=== PATIENT | female | born 1995 | race Caucasian/White ===

== ENCOUNTER 2021-03-30 11:19 | Emergency (ER) | payer OTHER, SELFPAY ==
--- NOTE | 2021-03-30 11:24 | ED.WOUNDLAC ---
HPI - Wound/Laceration General Chief Complaint: Wound/Laceration Stated Complaint: dog bite Time Seen by Provider: 03/30/21 11:27 Source: patient and RN notes reviewed Mode of arrival: ambulatory Limitations: no limitations History of Present Illness HPI narrative: 25 year old female presents with concern for dog bite to her left forearm that she sustained at 3 AM. She reports a wound to the left forearm that she sustained when her friend's dog bit her. She reports she is up-to-date on her tetanus vaccination. She denies any drainage, surrounding redness, swelling. Related Data Home Medications Medication Instructions Recorded Confirmed No Home Medications 03/30/21 03/30/21 Allergies Allergy/AdvReac Type Severity Reaction Status Date / Time latex Allergy Intermediate HIVES Verified 10/22/17 00:35 acetaminophen Allergy Mild Nausea and Verified 10/22/17 00:35 Vomiting codeine Allergy Mild Unknown Verified 10/22/17 00:35 hydrocodone Allergy Mild Nausea and Verified 10/22/17 00:35 Vomiting metronidazole Allergy Unknown Verified 10/22/17 00:35 Penicillins Allergy Unknown Verified 10/22/17 00:35 KETOROLAC TROMETHAMINE Allergy Intermediate Uncoded 10/22/17 00:35 METRONIDAZOLE HCL Allergy Unknown Uncoded 10/22/17 00:35 Review of Systems Review of Systems: Narrative: CONSTITUTIONAL: Denies malaise, chills, sweats, or fever. SKIN: Reports wound to her left forearm MUSCULOSKELETAL: Denies musculoskeletal pain or myalgia. NEUROLOGIC: Denies numbness, weakness All systems reviewed & are unremarkable except as noted in HPI and below PMFSH Family History Family History (Updated 08/19/16 @ 11:12 by DOCTOR UNKNOWN) Sibling Diabetes mellitus Family history of cystic fibrosis Social History Social History Alcohol intake: never Gender identity (if verbalized by the patient): Female Comments At time of signature, agree with nursing past medical, surgical, social and family history. There is no relevant family history pertinent to the presenting complaint Exam Narrative: Exam Narrative: GENERAL: Well-appearing, well-nourished, and in no acute distress. HEAD: Normocephalic, atraumatic. EYES: PERRLA, conjunctivae clear, and EOMI. ENT: Mucous membranes moist. Oropharynx without edema, erythema or lesions. NECK: Supple. No lymphadenopathy CHEST: Clear to auscultation. No respiratory distress. HEART: Regular rate and rhythm. SKIN: Warm, dry. 3 cm x 2 cm wound noted to the left forearm, gaping with beefy red tissue bed, no surrounding erythema, induration, edema, drainage noted. NEURO: Alert and oriented x3. PSYCH: Normal mood and affect Course Course Emergency Course: Wound is 8 hours old, gaping, unable to bring wound edges together to staple, patient is also not agreeable to stapling. Due to the nature of the wound, dog bite, will not suture at this time. Wound will be approximated as much as possible and closed with Steri-Strips and covered with a sterile dressing. Patient is starting Augmentin today for a dental problem, so will not prescribe another antibiotic today. Patient is aware of diagnosis, understands and agrees to treatment plan. Anticipatory guidance given. Patient agrees to follow-up as directed and is aware of reasons to seek care at the emergency department. Portions of this record may have been created with voice recognition software Vital Signs Vital signs: Reviewed. MDM - Wound/Laceration MDM Narrative Medical decision making narrative: Exam findings show no acute concerns or changes; patient is non-toxic appearing and is in no distress. Patient is appropriate for outpatient treatment and follow-up. Differential Diagnosis Differential diagnosis: Likely laceration, abrasion and avulsion of skin Critical Care Time Critical Care Time Critical Care Time: No Discharge Plan Discharge Clinical Impression: Dog bite Qualifiers: Encounter type: initial encounter Qualified Code(s)
[2021-03-30 11:40] VITALS: BP 110/66; PULSE 88; RESP 20; TEMP 36.4; O2SAT 100
== END 2021-03-30 11:57 | disposition home or self-care (01) ==
PROVIDERS: Emergency Provider Nurse Practitioner
DX: S51.852A Open bite of left forearm, initial encounter (principal); W54.0XXA Bitten by dog, initial encounter
CPT/HCPCS: 99213; G0463

== ENCOUNTER 2022-12-28 17:25 | Emergency (ER) | payer OTHER, SELFPAY ==
[2022-12-28 17:45] VITALS: BP 112/70; PULSE 92; RESP 20; TEMP 36.3; O2SAT 99
--- NOTE | 2022-12-28 17:52 | ED.BACK ---
HPI - Back Pain/Injury General Chief Complaint: Back Pain/Injury Stated Complaint: Lower Back Pain Time Seen by Provider: 12/28/22 17:52 Source: patient Mode of arrival: ambulatory Limitations: no limitations History of Present Illness HPI Narrative: 27-year-old female presented for complaint of right lower back pain after injury today while at work around 1230. Pain is sharp, radiating from right hip to the back of the leg down to the knee. Worse when lifting foot while walking. States at work she had to lift herself over a bin on to her toes while lifting materials out of the bin. She endorses feeling a sharp pain that resolved after a few minutes. She then returned to work and was lifting more materials while twisting, and states she felt the pain again which caused her to drop her supplies and drop to the right leg. Took non-aspirin pain reliever. Denies numbness, tingling or weakness of the extremities, saddle paresthesia, or loss of bowel/bladder control. Related Data Allergies Allergy/AdvReac Type Severity Reaction Status Date / Time acetaminophen AdvReac Intermediate Nausea and Verified 12/28/22 17:38 Vomiting codeine AdvReac Intermediate Nausea and Verified 12/28/22 17:38 Vomiting hydrocodone AdvReac Intermediate Nausea and Verified 12/28/22 17:38 Vomiting latex AdvReac Mild HIVES Verified 12/28/22 17:38 metronidazole AdvReac Mild Itching Verified 12/28/22 17:38 Penicillins AdvReac Mild Hives Verified 12/28/22 17:45 KETOROLAC TROMETHAMINE AdvReac Mild itching Uncoded 12/28/22 17:38 METRONIDAZOLE HCL AdvReac Mild Itching Uncoded 12/28/22 17:38 Review of Systems Review of Systems: CONSTITUTIONAL: Denies body aches, fever, chills EYES: Denies visual changes CARDIOVASCULAR: Denies chest pain, palpitations, or edema. RESPIRATORY: Denies cough or dyspnea. GASTROINTESTINAL: Denies abdominal pain, nausea, vomiting, or diarrhea. SKIN: Denies rash, itching, or wounds. MUSCULOSKELETAL: reports back pain NEUROLOGIC: Denies headache, numbness, tingling, or weakness. All systems reviewed & are unremarkable except as noted in HPI and below PMFSH Past Medical History Medical History (Updated 12/28/22 @ 18:13 by Radha Weir, LISA) Acute appendicitis with localized peritonitis Encounter for screening examination for sexually transmitted disease Surgical History Surgical History Delivery by section x 2 H/O tubal ligation 2020 Family History Family History Sibling Diabetes mellitus Family history of cystic fibrosis Social History Social History Smoking packs per day: 0.5 Smoking cigarettes per day: 10.0 Smoking status: Current every day smoker Tobacco type: cigarettes Alcohol intake: never Substance use: never Substance use type: does not use Living arrangements: with roommate(s) Occupation/Education: occupation 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 Please see nursing chart for further information. There is no relevant family history pertinent to the presenting complaint Exam Narrative: GENERAL: Well-appearing NECK: Supple. full ROM CHEST: Speaks in full sentences. No respiratory distress. HEART: Regular rate and rhythm. Normal and equal peripheral pulses. MUSC: No Vertebral point tenderness. BLEs with normal strength and sensation, normal range of motion; endorses pain to RLE and hip with movement. Tender right hip c/w SI joint pain. No open wounds or obvious deformity; alignment normal, pulse palpable and equal bilatera
== END 2022-12-28 18:07 | disposition home or self-care (01) ==
PROVIDERS: Emergency Provider Nurse Practitioner Family
DX: S39.012A Strain of muscle, fascia and tendon of lower back, initial encounter (principal); F17.210 Nicotine dependence, cigarettes, uncomplicated; X50.0XXA Overexertion from strenuous movement or load, initial encounter; Y99.0 Civilian activity done for income or pay
CPT/HCPCS: 99213; G0463

== ENCOUNTER 2023-02-02 16:10 | Emergency (ER) | payer OTHER, SELFPAY ==
[2023-02-02 16:18] VITALS: BP 102/69; PULSE 93; RESP 16; TEMP 36.3; O2SAT 98
--- NOTE | 2023-02-02 16:22 | ED.NAVMDI ---
HPI - Nausea/Vomiting/Diarrhea General Chief complaint: Nausea/Vomiting/Diarrhea Stated complaint: Nausea,Headache Time Seen by Provider: 02/02/23 16:22 Source: patient Mode of arrival: ambulatory Limitations: no limitations History of Present Illness HPI Narrative: Patient is 27-year-old female that presents with nausea and vomiting along with headache since Monday. Patient states any time she eats solid food she throws up, able to tolerate liquids. Patient states she can only take dye free ibuprofen to relieve headache and has not been able to get any from the store. History of gastritis as a teenager, reports feeling the same. Denies any abdominal pain, diarrhea, back pain, fever, chills. States when she smokes marijuana she is able to tolerate food and able to sleep. 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 Related Data Allergies Allergy/AdvReac Type Severity Reaction Status Date / Time acetaminophen AdvReac Intermediate Nausea and Verified 12/28/22 17:38 Vomiting codeine AdvReac Intermediate Nausea and Verified 12/28/22 17:38 Vomiting hydrocodone AdvReac Intermediate Nausea and Verified 12/28/22 17:38 Vomiting latex AdvReac Mild HIVES Verified 12/28/22 17:38 metronidazole AdvReac Mild Itching Verified 12/28/22 17:38 Penicillins AdvReac Mild Hives Verified 12/28/22 17:45 KETOROLAC TROMETHAMINE AdvReac Mild itching Uncoded 12/28/22 17:38 METRONIDAZOLE HCL AdvReac Mild Itching Uncoded 12/28/22 17:38 Review of Systems Review of Systems: All systems reviewed & are unremarkable except as noted in HPI and below Constitutional: Constitutional: Denies body ache(s), Denies fever(s), Denies malaise and Denies weakness Eyes: Eyes: Denies loss of vision ENT: Denies otalgia, Reports headache(s), Denies nasal discharge, Denies sinus pain and Denies sore throat Cardiovascular: Cardiovascular: Denies chest pain, Denies irregular heart rhythm and Denies dyspnea Respiratory: Respiratory: Denies dyspnea Gastrointestinal: Gastrointestinal: Denies abdominal pain, Denies melena, Denies hematochezia, Denies diarrhea, Reports nausea and Reports vomiting Musculoskeletal: Musculoskeletal: Denies back pain, Denies myalgias and Denies arthralgias Integumentary/Breasts: Skin/Breast: Denies pruritus and Denies rash Neurologic: Denies headache(s), Denies loss of vision and Denies weakness Psychiatric: Psychiatric: Reports no additional psychiatric complaints PMFSH Past Medical History Medical History (Updated 02/02/23 @ 16:55 by Erlinda Worrell APRN) Acute appendicitis with localized peritonitis Encounter for screening examination for sexually transmitted disease Surgical History Surgical History Delivery by section x 2 H/O tubal ligation 2020 Family History Family History Sibling Diabetes mellitus Family history of cystic fibrosis Social History Social History Smoking packs per day: 0.5 Smoking cigarettes per day: 10.0 Smoking status: Current every day smoker Tobacco type: cigarettes Alcohol intake: never Substance use: never Substance use type: does not use Living arrangements: with roommate(s) Occupation/Education: occupation 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 There is no relevant family history pertinent to the presenting complaint. Exam Const: General: cooperative, healthy appearing, comfortable, no acute distress and well nourished Nutritional Appearance: well nourished Orientation/consc
== END 2023-02-02 17:09 | disposition home or self-care (01) ==
PROVIDERS: Emergency Provider Nurse Practitioner Family
DX: R11.2 Nausea with vomiting, unspecified (principal); F17.210 Nicotine dependence, cigarettes, uncomplicated
CPT/HCPCS: 99213; G0463

== ENCOUNTER 2023-04-26 14:21 | Emergency (ER) | payer OTHER, SELFPAY ==
[2023-04-26 14:26] VITALS: BP 121/66; PULSE 83; RESP 16; TEMP 36.5; O2SAT 99
--- NOTE | 2023-04-26 14:59 | ED.ABDPAIN ---
HPI - Abdominal Pain General Chief Complaint: Abdominal Pain Stated Complaint: Abdominal Pain,Diarrhea,Dark Stools Time Seen by Provider: 04/26/23 14:36 Source: patient, RN notes reviewed and old records reviewed (PCP office records) Mode of arrival: ambulatory Limitations: no limitations History of Present Illness HPI narrative: Patient presents today complaining of a 1 month history of diarrhea that she describes as, ?dark and tarry?. States she experiences 8-9 stools per day and also states there has been some bright red material in the stool at times, but cannot confirm that this was blood. Denies rectal pain or fever. Over the past month she has been incontinent of stool 4-5 times, too with these have been over the past week. Over the past 3 days she had started experiencing periumbilical abdominal pain intermittently. Does not currently present. History of gastritis and GERD. Denies history of colitis, ulcerative colitis, Crohn's disease. She has not ever had a colonoscopy. She saw her PCP in office approximately 2 weeks ago, but did not mention her symptoms. Related Data Allergies Allergy/AdvReac Type Severity Reaction Status Date / Time acetaminophen AdvReac Intermediate Nausea and Verified 04/12/23 15:11 Vomiting codeine AdvReac Intermediate Nausea and Verified 04/12/23 15:11 Vomiting hydrocodone AdvReac Intermediate Nausea and Verified 04/12/23 15:11 Vomiting latex AdvReac Mild HIVES Verified 04/12/23 15:11 metronidazole AdvReac Mild Itching Verified 04/26/23 14:34 Penicillins AdvReac Mild Hives Verified 04/26/23 14:34 KETOROLAC TROMETHAMINE AdvReac Mild itching Uncoded 04/12/23 15:11 METRONIDAZOLE HCL AdvReac Mild Itching Uncoded 04/12/23 15:11 Review of Systems Review of Systems: CONSTITUTIONAL: Denies body aches, fever, chills, or sweats. EYES: Denies visual changes, redness, or discharge. ENT: Denies rhinorrhea, congestion, sore throat, or otalgia. CARDIOVASCULAR: Denies chest pain, palpitations, or edema. RESPIRATORY: Denies cough or dyspnea. GASTROINTESTINAL: Denies nausea, vomiting.+ abdominal pain, diarrhea, fecal incontinence GENITOURINARY: Denies dysuria or hematuria. SKIN: Denies rash, itching, or wounds. MUSCULOSKELETAL: Denies back pain, joint pain, or myalgia. NEUROLOGIC: Denies headache, numbness, tingling, or weakness. PSYCH: Denies depression or anxiety. [facility] Past Medical History Medical History Acute appendicitis with localized peritonitis Anxiety Arthritis BMI 36.0-36.9,adult Depression Encounter for screening examination for sexually transmitted disease Encounter to establish care Generalized anxiety disorder with panic attacks GERD (gastroesophageal reflux disease) Headache Infected dental caries Migraine with aura Tobacco abuse Surgical History Surgical History Delivery by section x 2 H/O tubal ligation 2020 History of tonsillectomy (~2012) Family History Family History Sibling Diabetes mellitus Family history of cystic fibrosis Depression Grandparent Cancer Diabetes mellitus Hypertension Depression Anxiety Grandparent Cancer Diabetes mellitus Social History Social History Smoking packs per day: 0.5 Smoking cigarettes per day: 10.0 Smoking status: Current every day smoker Tobacco type: cigarettes Alcohol intake: never Substance use: current Substance use type: marijuana Other substance usage details: Vapes THC but no other substances for a year and a half Lack of Transportation: No Lack of Food: Never True Current Housing: I Have Housing Concerned About Future Housing: No Difficulty Paying Gas/Electric Bills: No Difficulty Paying for Meds: No Currently Unemplo
== END 2023-04-26 15:00 | disposition left against medical advice (07) ==
PROVIDERS: Emergency Provider Nurse Practitioner; PCP Nurse Practitioner Family
DX: R19.7 Diarrhea, unspecified (principal); R10.33 Periumbilical pain; R10.30 Lower abdominal pain, unspecified; R10.32 Left lower quadrant pain; R15.9 Full incontinence of feces; F17.210 Nicotine dependence, cigarettes, uncomplicated; M19.90 Unspecified osteoarthritis, unspecified site; K21.9 Gastro-esophageal reflux disease without esophagitis; F32.A Depression, unspecified; F41.9 Anxiety disorder, unspecified; F41.0 Panic disorder [episodic paroxysmal anxiety]
CPT/HCPCS: 99211; G0463

== ENCOUNTER 2023-04-26 15:45 | Emergency (ER) | payer OTHER, SELFPAY ==
[2023-04-26 16:12] VITALS: BP 122/71; PULSE 90; RESP 16; TEMP 36.1; O2SAT 98
[2023-04-26 18:12] LABS: Basophils Absolute Auto 0.1 K/mm3 (0.0-0.1); Basophils Percent Auto 0.6 % (0.2-1.2); Eosinophils Absolute Auto 0.2 K/mm3 (0-0.3); Eosinophils Percent Auto 1.5 % (0-4.4); Hematocrit 43.5 % (37.0-47.0); Hemoglobin 14.7 g/dL (12.0-15.0); Immature Granulocyte Absolute 0.02 K/mm3 (0.00-0.031); Immature Granulocyte Percent A 0.2 % (0-0.5); Lymphocytes Percent Auto 23.9 % (18.3-44.2); Mean Corpuscular HGB Conc 33.8 g/dl (32-36); Mean Corpuscular Hemoglobin 31.5 pg (26-34); Mean Corpuscular Volume 93.1 fl (80-100); Mean Platelet Volume 10.8 fl (7.4-10.4); Monocytes Absolute Auto 0.6 K/mm3 (0.1-0.6); Monocytes Percent Auto 5.3 % (2.6-8.5); Neutrophils Absolute Auto 7.7 K/mm3 (1.3-6.7); Neutrophils Percent Auto 68.5 % (45.5-73.1); Platelet Count Result 218 k/mm3 (150-375); Red Blood Count 4.67 M/mm3 (4.2-5.4); Red Cell Distribution Width 12.4 % (11.5-14.5); White Blood Count 11.3 K/mm3 (4.5-10.0)
[2023-04-26 18:22] LABS: Alanine Aminotransferase 30 U/L (6-35); Albumin Level 4.3 g/dL (3.5-5.1); Alkaline Phosphatase 90 U/L (38-126); Anion Gap 4 mmol/L (8-16); Aspartate Amino Transferase 27 U/L (14-36); Bilirubin,Total 0.4 mg/dL (0.2-1.3); Blood Urea Nitrogen 13 mg/dL (7-17); Calcium 9.1 mg/dL (8.4-10.2); Carbon Dioxide 29 mmol/L (22-30); Chloride 102 mmol/L (98-107); Estimated CRCL calculation 126 ml/min; Estimated Glomerular Filt Rate > 60; Glucose 85 mg/dL (65-110); Lipase 41 U/L (23-300); Potassium 3.8 mmol/L (3.4-5.0); Sodium 135 mmol/L (137-145)
[2023-04-26 18:29] VITALS: BP 116/86; PULSE 77; RESP 18; O2SAT 100
[2023-04-26 18:34] VITALS: O2SAT 99
[2023-04-26 18:35] VITALS: BP 116/86; O2SAT 99
--- NOTE | 2023-04-26 19:01 | ED.GENADULT ---
HPI - General Adult General Chief complaint: Abdominal Pain Stated complaint: abdominal pain and incontinence - from [facility] Time Seen by Provider: 04/26/23 18:39 Related Data Allergies Allergy/AdvReac Type Severity Reaction Status Date / Time latex Allergy Hives Verified 04/26/23 15:51 metronidazole [From Flagyl] Allergy Hives Verified 04/26/23 16:05 Penicillins Allergy Hives Verified 04/26/23 16:06 PMFSH Past Medical History Medical History Acute appendicitis with localized peritonitis Anxiety Arthritis BMI 36.0-36.9,adult Depression Encounter for screening examination for sexually transmitted disease Encounter to establish care Generalized anxiety disorder with panic attacks GERD (gastroesophageal reflux disease) Headache Infected dental caries Migraine with aura Tobacco abuse Surgical History Surgical History Delivery by section x 2 H/O tubal ligation 2020 History of tonsillectomy (~2012) Family History Family History Sibling Diabetes mellitus Family history of cystic fibrosis Depression Grandparent Cancer Diabetes mellitus Hypertension Depression Anxiety Grandparent Cancer Diabetes mellitus Social History Social History Smoking packs per day: 0.5 Smoking cigarettes per day: 10.0 Smoking status: Current every day smoker Tobacco type: cigarettes Alcohol intake: never Substance use: current Substance use type: marijuana Other substance usage details: Vapes THC but no other substances for a year and a half Lack of Transportation: No Lack of Food: Never True Current Housing: I Have Housing Concerned About Future Housing: No Difficulty Paying Gas/Electric Bills: No Difficulty Paying for Meds: No Currently Unemployed: No Education: High School Diploma/GED Difficulty w/ Childcare or Family Care: No Living arrangements: with roommate(s) Occupation/Education: occupation 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 Musculoskeletal: Normal range of motion, nontender back Neurologic: Alert and oriented ?3, [employer] is normal as tested, no gross motor deficit Course Vital Signs Vital signs: Vital Signs Temperature 36.1 C L 04/26/23 16:12 Pulse Rate 90 04/26/23 16:12 Respiratory Rate 16 04/26/23 16:12 Blood Pressure 122/71 04/26/23 16:12 Pulse Oximetry 98 04/26/23 16:12 Oxygen Delivery Room Air 04/26/23 16:12 Temperature 36.1 C L 04/26/23 16:12 Pulse Rate 80 04/26/23 19:15 Respiratory Rate 20 04/26/23 19:15 Blood Pressure 119/84 04/26/23 19:15 Pulse Oximetry 100 04/26/23 19:15 Oxygen Delivery Room Air 04/26/23 18:29 Medical Decision Making Vital Signs Vital Signs: Vital Signs Temperature 36.1 C L 04/26/23 16:12 Pulse Rate 90 04/26/23 16:12 Respiratory Rate 16 04/26/23 1
[2023-04-26 19:15] VITALS: BP 119/84; PULSE 80; RESP 20; O2SAT 100
[2023-04-26 19:31] LABS: Appearance Urine Cloudy (Clear); Bacteria Urine None Seen /hpf; Bilirubin Urine Negative (Negative); Blood Urine Negative (Negative); Color Urine Yellow (Yellow); Glucose Urine UA Negative (Negative); Ketones Urine Negative (Negative); Leukocyte Esterase Ur Negative LEU/UL (Negative); Need Manual Microscopic Reviewed; Nitrate Urine Negative (Negative); Non Pathogenic Casts 0-2; Protein Urine Negative (Negative); RBC Urine 0-2 /hpf (0-2); Specific Grav Ur 1.024 (1.001-1.035); Squamous Epithelial Cell Urine Moderate /hpf (Few); Urobilinogen Urine 0.2 mg/dL (<2.0); WBC Urine 0-5 /hpf
[2023-04-26 19:32] LABS: Add Urine Microscopic? YES
== END 2023-04-26 19:10 | disposition home or self-care (01) ==
PROVIDERS: Emergency Provider Emergency Medicine; PCP Nurse Practitioner Family
DX: R10.9 Unspecified abdominal pain (principal); K21.9 Gastro-esophageal reflux disease without esophagitis; M19.90 Unspecified osteoarthritis, unspecified site; F17.210 Nicotine dependence, cigarettes, uncomplicated
CPT/HCPCS: 36415; 80053; 81001; 83690; 85025; 99283

== ENCOUNTER 2023-07-25 16:58 | Outpatient (CLI) | payer OTHER, SELFPAY ==
[2023-07-25 17:49] LABS: Appearance Urine Turbid (Clear); Bacteria Urine 2+ /hpf; Bilirubin Urine Negative (Negative); Color Urine Yellow (Yellow); Glucose Urine UA Negative (Negative); Ketones Urine 1+ mg/dL (Negative); Leukocyte Esterase Ur 1+ LEU/UL (Negative); Need Manual Microscopic Reviewed; Nitrate Urine Negative (Negative); Non Pathogenic Casts 0-2; Protein Urine Negative (Negative); Specific Grav Ur 1.017 (1.001-1.035); Squamous Epithelial Cell Urine Many /hpf (Few); Urobilinogen Urine 0.2 mg/dL (<2.0)
[2023-07-25 17:51] LABS: Add Urine Microscopic? YES
== END 2023-07-25 16:59 | disposition home or self-care (01) ==
LOC: ANHLAB 17:01
PROVIDERS: PCP Nurse Practitioner Family; Visit Provider Nurse Practitioner Family
DX: R30.0 Dysuria (principal)
CPT/HCPCS: 81001; 87077; 87086; 87186

== ENCOUNTER 2024-02-22 07:18 | Emergency (ER) | payer SELFPAY ==
[2024-02-22 07:21] VITALS: BP 121/85; PULSE 85; RESP 18; TEMP 36.6; O2SAT 98
--- NOTE | 2024-02-22 07:22 | ED.GENADULT ---
HPI - General Adult General Chief complaint: Headache Stated complaint: migraine x 3-4 days Time Seen by Provider: 02/22/24 07:20 History of Present Illness HPI narrative: Patient is a 28-year-old female who presents the ER with migraine headache. Right-sided and forehead moving the back of her head and down her neck towards her shoulder. She reports it has been going on for 3 weeks but has been worse over last 4-5 days since finishing her menstrual cycle. No fevers or chills or sweats. Has tried rizatriptan without any improvement. She has history of migraines since she was young. No recent trauma. No numbness or weakness. Related Data Allergies Allergy/AdvReac Type Severity Reaction Status Date / Time latex Allergy Hives Verified 02/22/24 07:26 metronidazole [From Flagyl] Allergy Hives Verified 02/22/24 07:26 Penicillins Allergy Hives Verified 02/22/24 07:26 Review of Systems Review of Systems: All systems reviewed & are unremarkable except as noted in HPI and below Constitutional: Constitutional: Reports no additional constitutional complaints ENT: Reports system reviewed and no additional complaints, except as documented Cardiovascular: Cardiovascular: Reports no additional cardiovascular complaints Respiratory: Respiratory: Reports no additional respiratory complaints Musculoskeletal: Musculoskeletal: Reports no additional musculoskeletal complaints Neurologic: Reports headache(s), Denies focal weakness and Denies numbness PMFSH Past Medical History Medical History (Updated 02/22/24 @ 08:52 by Catracho Sauceda MD) Acute appendicitis with localized peritonitis Anxiety Arthritis BMI 34.0-34.9,adult BMI 36.0-36.9,adult Chest pain Depression Dysuria Encounter for screening examination for sexually transmitted disease Encounter to establish care Generalized anxiety disorder with panic attacks GERD (gastroesophageal reflux disease) Headache Infected dental caries Migraine with aura Tobacco abuse Yeast infection Surgical History Surgical History Delivery by section x 2 H/O tubal ligation 2020 History of tonsillectomy (~2012) Family History Family History Sibling Diabetes mellitus Family history of cystic fibrosis Depression Grandparent Cancer Diabetes mellitus Hypertension Depression Anxiety Grandparent Cancer Diabetes mellitus Social History Social History Smoking packs per day: 0.5 Smoking cigarettes per day: 10.0 Smoking status: Current every day smoker Tobacco type: cigarettes Alcohol intake: never Substance use: current Substance use type: marijuana Other substance usage details: Vapes THC but no other substances for a year and a half Lack of Transportation: No Lack of Food: Never True Current Housing: I Have Housing Concerned About Future Housing: No Difficulty Paying Gas/Electric Bills: No Difficulty Paying for Meds: No Currently Unemployed: No Education: High School Diploma/GED Difficulty w/ Childcare or Family Care: No Living arrangements: with roommate(s) Occupation/Education: occupation 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 HEAD: Normocephalic, atraumatic. EYES: PERRL and EOMI. ENT: Mucous membranes moist. NECK: Supple. CHEST: Clear to auscultation. No respiratory distress. HEART: Regular rate and rhythm. Normal peripheral pulses. EXTREMITIES: Normal range of motion. No edema. NEURO: Alert and oriented x3. PSYCH: Normal mood and affect. Course Course Emergency Course: Symptoms improved after migraine cocktail.
[2024-02-22] MEDS: diphenhydrAMINE HCl INJ 50 MG/ML VIAL 25 MG IV PUSH (07:40)
[2024-02-22] MEDS: METOCLOPRAMIDE HCL INJ 10 MG/2 ML VIAL IV PUSH (07:40)
[2024-02-22] MEDS: SODIUM CHLORIDE 0.9% IV 1,000 ML 999 ML IV CONT (07:40)
[2024-02-22] MEDS: KETOROLAC 30 MG/ML VIAL (*BKC) IV PUSH (07:40)
[2024-02-22 09:21] VITALS: BP 88/58; PULSE 57; RESP 18; O2SAT 100
== END 2024-02-22 09:23 | disposition home or self-care (01) ==
PROVIDERS: Emergency Provider Emergency Medicine; PCP Nurse Practitioner Family
DX: G43.909 Migraine, unspecified, not intractable, without status migrainosus (principal); M19.90 Unspecified osteoarthritis, unspecified site; K21.9 Gastro-esophageal reflux disease without esophagitis; F17.290 Nicotine dependence, other tobacco product, uncomplicated; F41.9 Anxiety disorder, unspecified; F32.A Depression, unspecified
CPT/HCPCS: 96361; 96374; 96375; 99284; J1200; J1885; J2765; J7030

== ENCOUNTER 2024-07-29 18:55 | Emergency (ER) | payer SELFPAY ==
--- NOTE | ~2024-07-29 | XR_ITS ---
EXAMINATION: XR chest 2V DATE: 07/29/2024 19:21 INDICATION: Dyspnea. TECHNIQUE: Frontal and lateral views of the chest were obtained. COMPARISON: Chest 2 views 10/22/17, chest CT 01/01/2017. FINDINGS: There is no pneumonia, pleural effusion, or pneumothorax. The heart size is normal. IMPRESSION: 1. No acute cardiopulmonary disease. Reviewed, dictated and finalized at location A.
[2024-07-29 19:00] VITALS: BP 125/84; PULSE 116; RESP 28; TEMP 36.2; O2SAT 96
--- NOTE | 2024-07-29 19:18 | ED.URI ---
HPI - URI/Sore Throat General Chief Complaint: Upper Respiratory Infection Stated Complaint: COUGH,CONGESTION Time Seen by Provider: 07/29/24 19:08 History of Present Illness HPI Narrative: 28-year-old otherwise healthy female presenting to the emergency department for sudden-onset coughing and dyspnea since waking up today. Patient states she is a smoker and ingests marijuana and tobacco frequently. She states she was at work and has sudden-onset coughing fit and having difficulty catching her breath. She was wheezing. Denies any chest pain, nausea, vomiting, headache, vision changes, fever, chills, was otherwise in her normal state of health. Did not smoke prior to the onset of the symptoms. Sick contacts at work. Related Data Allergies Allergy/AdvReac Type Severity Reaction Status Date / Time latex Allergy Hives Verified 02/22/24 07:26 metronidazole [From Flagyl] Allergy Hives Verified 02/22/24 07:26 Penicillins Allergy Hives Verified 02/22/24 07:26 Review of Systems Review of Systems: As reviewed above in [facility]PI [facility] Past Medical History Medical History Acute appendicitis with localized peritonitis Anxiety Arthritis BMI 34.0-34.9,adult BMI 36.0-36.9,adult Chest pain Depression Dysuria Encounter for screening examination for sexually transmitted disease Encounter to establish care Generalized anxiety disorder with panic attacks GERD (gastroesophageal reflux disease) Headache Infected dental caries Migraine with aura Tobacco abuse Yeast infection Surgical History Surgical History Delivery by section x 2 H/O tubal ligation 2020 History of tonsillectomy (~2012) Family History Family History Sibling Diabetes mellitus Family history of cystic fibrosis Depression Grandparent Cancer Diabetes mellitus Hypertension Depression Anxiety Grandparent Cancer Diabetes mellitus Social History Social History Smoking packs per day: 0.5 Smoking cigarettes per day: 10.0 Smoking status: Current every day smoker Tobacco type: cigarettes Alcohol intake: never Substance use: current Substance use type: marijuana Other substance usage details: Vapes THC but no other substances for a year and a half Lack of Transportation: No Lack of Food: Never True Current Housing: I Have Housing Concerned About Future Housing: No Difficulty Paying Gas/Electric Bills: No Difficulty Paying for Meds: No Currently Unemployed: No Education: High School Diploma/GED Difficulty w/ Childcare or Family Care: No Living arrangements: with roommate(s) Occupation/Education: occupation 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 Mucous membranes moist. NECK: Supple. CHEST: [ Has wheezing appreciated in the right upper lung field, bilateral breath sounds with good air entry, coughing throughout the examination with deep breathing.] HEART: [Regular rate and rhythm]. No murmur heard. [Normal peripheral pulses.] ABDOMEN: [Soft, nondistended], [nontender], [No rigidity or guarding] EXTREMITIES: Normal range of motion. [No edema.] SKIN: Warm, dry, no rash. NEURO: [No focal deficits]. Alert and oriented [x3.] PSYCH: [Normal mood and affect.] Course Vital Signs Vital signs: Vital Signs Temperature 36.2 C L 07/29/24 19:00 Pulse Rate 116 H
[2024-07-29 19:28] VITALS: BP 132/86; PULSE 106; RESP 20; O2SAT 100; O2SAT 99
--- NOTE | 2024-07-29 19:30 | ECG_ITS ---
Test Date: 2024-07-29 19:35:00 Measurements Intervals [place] Rate: 113 P: 48 UT: 171 QRS: -38 QRSD: 107 T: 48 QT: 314 QTc: 432 Interpretive Statements SINUS TACHYCARDIA WITH OCCASIONAL VENTRICULAR PREMATURE COMPLEXES LEFT AXIS DEVIATION [QRS AXIS < -30] INCOMPLETE RIGHT BUNDLE BRANCH BLOCK [90+ ms QRS DURATION, TERMINAL R IN V1/V2, 40+ ms S IN I/aVL/V4/V5/V6] No previous ECG available for comparison Electronically Signed On 07-30-2024 12:00:23 CDT by Elva Le M.D.
[2024-07-29 19:58] LABS: Influenza A QL RT-PCR Negative (Negative); Influenza B QL RT-PCR Negative (Negative); RSV RNA, RT-PCR Negative (Negative); SARS-CoV-2 RNA PCR Negative (Negative)
[2024-07-29] MEDS: IPRATROPIUM 0.5 MG/ALBUTEROL SULFATE 2.5 MG AMPUL.NEB 3 ML INHALATION (20:28)
[2024-07-29 20:30] VITALS: PULSE 105; RESP 21
[2024-07-29] MEDS: LIDOCAINE HCL 4% LOCAL INJ 5 ML AMP INFILTRATE (20:31)
[2024-07-29 20:48] VITALS: PULSE 102; RESP 16
[2024-07-29 21:39] VITALS: BP 101/80; PULSE 110; RESP 15; O2SAT 97
== END 2024-07-29 21:40 | disposition home or self-care (01) ==
PROVIDERS: Emergency Provider Student in an Organized Health Care Education/Training Program; PCP Nurse Practitioner Family
DX: J98.01 Acute bronchospasm (principal); Z20.822 Contact with and (suspected) exposure to COVID-19; M19.90 Unspecified osteoarthritis, unspecified site; K21.9 Gastro-esophageal reflux disease without esophagitis; F41.9 Anxiety disorder, unspecified; F32.A Depression, unspecified; F17.210 Nicotine dependence, cigarettes, uncomplicated; Z79.899 Other long term (current) drug therapy; R00.0 Tachycardia, unspecified; I49.3 Ventricular premature depolarization
CPT/HCPCS: 71046; 87637; 93005; 94640; 99283; J2003

== ENCOUNTER 2024-12-02 16:23 | Emergency (ER) | payer OTHER, SELFPAY ==
[2024-12-02 17:44] VITALS: BP 122/68; PULSE 80; RESP 16; TEMP 36.4; O2SAT 100
--- NOTE | 2024-12-02 18:25 | ED.DENTAL ---
HPI - Dental/Oral General Chief complaint: Dental/Oral Stated complaint: tooth pain Time Seen by Provider: 12/02/24 18:26 Source: patient Mode of arrival: ambulatory History of Present Illness HPI Narrative: 29-year-old female presented for complaint of left lower dental pain for several weeks. She states she has poor dentition throughout and the left lower molar broke a few weeks ago. Since then pain is getting worse. Denies facial swelling or difficulty swallowing. Patient follows with the dental school and has plans to have full tooth extraction. Scheduled with dentist in December. Complaint: tooth pain Related Data Allergies Allergy/AdvReac Type Severity Reaction Status Date / Time latex Allergy Hives Verified 12/02/24 17:57 metronidazole (From Flagyl) Allergy Hives Verified 12/02/24 17:57 Penicillins Allergy Hives Verified 12/02/24 17:57 Review of Systems Review of Systems: CONSTITUTIONAL: Denies body aches, fever, chills ENT: Denies rhinorrhea, congestion, sore throat, or otalgia. Reports dental pain CARDIOVASCULAR: Denies chest pain, palpitations RESPIRATORY: Denies cough or dyspnea. SKIN: Denies rash, itching, or wounds. MUSCULOSKELETAL: Denies myalgia. NEUROLOGIC: Denies headache, numbness, tingling, or weakness. [facility] Past Medical History Medical History Acute appendicitis with localized peritonitis Anxiety Arthritis BMI 34.0-34.9,adult BMI 36.0-36.9,adult Chest pain Depression Dysuria Encounter for screening examination for sexually transmitted disease Encounter to establish care Generalized anxiety disorder with panic attacks GERD (gastroesophageal reflux disease) Headache Infected dental caries Migraine with aura Tobacco abuse Yeast infection Surgical History Surgical History Delivery by section x 2 H/O tubal ligation 2020 History of tonsillectomy (~2012) Family History Family History Sibling Diabetes mellitus Family history of cystic fibrosis Depression Grandparent Cancer Diabetes mellitus Hypertension Depression Anxiety Grandparent Cancer Diabetes mellitus Social History Social History Smoking packs per day: 0.5 Smoking cigarettes per day: 10.0 Smoking status: Current every day smoker Tobacco type: cigarettes Alcohol intake: never Substance use: current Substance use type: marijuana Other substance usage details: Vapes THC but no other substances for a year and a half Lack of Transportation: No Lack of Food: Never True Current Housing: I Have Housing Concerned About Future Housing: No Difficulty Paying Gas/Electric Bills: No Difficulty Paying for Meds: No Currently Unemployed: No Education: High School Diploma/GED Difficulty w/ Childcare or Family Care: No Living arrangements: with roommate(s) Occupation/Education: occupation 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 Please see nursing chart for further information. There is no relevant family history pertinent to the presenting complaint Exam Narrative: GENERAL: Appears in pain; no acute distress. HEAD: Normocephalic, atraumatic. EYES: EOMI. No redness or drainage. Conjunctivae normal. ENT: Dental pain location of #19, tooth is broken, tender. No surrounding gum erythema or swelling. Poor dentition throughout. Mucous membranes pink and moist. TMs normal bilaterally. Throat normal. no dysphagia, odynophagia, dysphonia, or dyspnea. No uvular deviation or soft palate edema. NECK: Normal AROM. No lymphadenopathy. no induration below mandible, no neck pain. CHEST: No respiratory distress. Clear to auscultation. HEART: Regular rate and rhythm. NEURO: No focal deficits. Alert and oriented x3. Gait steady. Course Course Emergency Course: Patient is aware of diagnosis, understands and agrees to treatment plan. Anticipatory guidance given. Patient agrees to follow-up as directed and is aware of reasons to seek care at the emergency department. Portions of this record may have been created with voice recognition software Level of Care: Express Care Visit Vital Signs Vital signs: Vital Signs Temperature 97.5 F L 12/02/24 17:44 Pulse Rate 80 12/02/24 17:44 Respiratory Rate 16 12/02/24 17:44 Blood Pressure 122/68 12/02/24 17:44 Pulse Oximetry 100 12/02/24 17:44 Oxygen Delivery Room Air 12/02/24 17:44 Temperature 97.5 F L 12/02/24 17:44 Pulse Rate 80 12/02/24 17:44 Respiratory Rate 16 12/02/24 17:44 Blood Pressure 122/68 12/02/24 17:44 Pulse Oximetry 100 12/02/24 17:44 Oxygen Delivery Room Air 12/02/24 17:44 MDM - Dental/Oral MDM Narrative Medical decision making narrative: Patients pain and complaint coupled with physical findings are consistent with dentalgia.There are no focal signs of space occupying lesions that are compromising to the airway; Patient is non-toxic appearing. The floor of the mouth is soft with no signs of Chris's Angina;Patient is without trismus or drooling and able to swallow secretions. Patient is felt appropriate for discharge home with dental follow up. Discharge Plan Discharge Clinical Impression: Toothache Patient Disposition: Home, Self-Care Condition: Stable Instructions: Antibiotic Form, Toothache (ED) Additional Instructions: Take antibiotic as directed May apply heat or ice to the face Gentle brushing and flossing. Rinse mouth with warm salt water at least 2 times a day. Alternate Tylenol and ibuprofen as needed for pain Follow-up with the dentist as soon as possible--see the list provided Go to the ER for worsening symptoms or concerns Patient Language: Ethiopian Prescriptions: New clindamycin HCl [Cleocin HCl] 300 mg capsule 300 mg PO Q8H 10 Days Qty: 30 0RF ibuprofen 800 mg tablet 800 mg PO TID PRN (Reason: pain) Qty: 15 0RF lidocaine HCl [Lidocaine Viscous] 2 % solution 1 applic mucous membrane TID PRN (Reason: pain) Qty: 100 0RF Rx Instructions: apply with cotton swab to site of pain No Action metoprolol succinate 25 mg tablet extended release 24 hr 25 mg PO DAILY Qty: 90 3RF escitalopram oxalate 20 mg tablet 20 mg PO DAILY Qty: 90 3RF omeprazole 40 mg capsule,delayed release(DR/EC) 40 mg PO DAILY Qty: 90 3RF bupropion HCl [Wellbutrin SR] 150 mg tablet sustained-release 12 hr 150 mg PO QAM Qty: 90 3RF rizatriptan 5 mg tablet See Rx Instructions PO .COMPLEX Qty: 9 11RF Rx Instructions: take 1 tablet at onset of headache; if no relief, may repeat 1 tablet after at least 2 hrs PO [id number] [Fioricet] 50-300-40 mg capsule 1 cap PO TID PRN (Reason: pain) Qty: 20 0RF Follow-up/Referrals: Estela Rodney, PAVEL [Primary Care Provider] - Stand Alone Forms: Work/School Release IP
--- OUTSIDE RECORDS SUMMARY | 2024-12-02 18:30 | XMS_ITS | Patient Health Record ---
Author Organization [facility] Address [address] [place] [address] Care Team Providers Care Senior [address] Office Assistant Name Role Phone Fabian Khoury Primary Care Provider Allergies Allergen (clinical drug ingredient) Drug/Non Drug Allergy documented on EMR Reaction Allergy Type Onset Date Status metronidazole Flagyl HIVES/RASH Drug Allergy Ac tive ketorolac Ketorolac Tromethamine HIVES/RASH Drug Allergy Active Penicillin G Benzathine HIVES/RASH Drug Allergy Active Reason For Referral No Information Medications Medication SIG (Take, Route, Fr equency, Duration) Notes Start Date End Date Status Folic Acid 1 MG 1 tablet Orally Once a day for 30 day(s) Active Multivitamin Adult - as directed Orally Active Clindamycin HCl 300 MG 2 capsules Orally every 8 hrs for 10 day(s) Active Thiamine HCl 100 MG 1 tablet Orally Once a day for 30 day(s) Active LORazepam 1 MG 1 tablet at bedtime as needed Orally Once a day Active Social History Sex Assigned At : Social History Observation Description Sex Assigned At Female Problems Problem Type SNOMED Code ICD Code Onset Dates Problem Status W/U Status Risk Notes Problem 914170275 Methamphetamine abuse (F15.10) Active confirmed Problem 935682546 Tobacco use disorder (F17.200) Active confirmed Plan Of Treatment No Information Insurance Providers Payer Name Payer Address Payer Phone Subscriber Number Group Number Insured Name Patient Relationship to Insured Coverage Start Date Coverage End Date [facility] Att Claims Department [address] [place] [address] [id number] Gricelda Abebe Self - patient is the insured 0 Medical (General) History Surgical History Surgery Date(Month/Year) appendix surgery 2015 tonsillectomy 2013 Hospitalization History Reason Date(Month/Year) 2014/2015
== END 2024-12-02 18:33 | disposition home or self-care (01) ==
PROVIDERS: Emergency Provider Nurse Practitioner Family; PCP Nurse Practitioner Family
DX: K08.89 Other specified disorders of teeth and supporting structures (principal); F17.210 Nicotine dependence, cigarettes, uncomplicated; F12.90 Cannabis use, unspecified, uncomplicated; K21.9 Gastro-esophageal reflux disease without esophagitis; M19.90 Unspecified osteoarthritis, unspecified site; F32.A Depression, unspecified; F41.1 Generalized anxiety disorder
CPT/HCPCS: 99213; G0463

== ENCOUNTER 2024-12-24 08:42 | Emergency (ER) | payer OTHER, SELFPAY ==
--- NOTE | 2024-12-24 08:46 | ED.DENTAL ---
HPI - Dental/Oral General Chief complaint: Dental/Oral Stated complaint: dental pain Time Seen by Provider: 12/24/24 08:44 Source: patient Mode of arrival: ambulatory Limitations: no limitations History of Present Illness HPI Narrative: Patient is a 29-year-old female that presents with left upper cuspid pain. Patient had left upper quadrant extraction 8 days ago. Patient states she has no pain, drainage or swelling at incision site. Pain is 1st tooth after incisions. Patient has tried viscous lidocaine, abgq-qjy-ewmhbzv medication and prescription strength medication with no relief. Patient is called Counts include [facility] beds at the [facility] dental school and was told it will go away. Dental school is currently on spring but she will call on Monday for follow-up. Patient has plan for next quadrant extraction the beginning of January with another quadrant extraction a week later. Patient states she is in the process of getting dentures. Related Data Allergies Allergy/AdvReac Type Severity Reaction Status Date / Time latex Allergy Hives Verified 12/24/24 08:43 metronidazole (From Flagyl) Allergy Hives Verified 12/24/24 08:43 Penicillins Allergy Hives Verified 12/24/24 08:43 Review of Systems Review of Systems: All systems reviewed & are unremarkable except as noted in HPI and below Constitutional: Constitutional: Denies body ache(s), Denies fever(s), Denies headache(s), Denies malaise and Denies weakness Eyes: Eyes: Denies loss of vision ENT: Denies otalgia, Reports facial pain (jaw), Denies headache(s), Denies nasal discharge, Denies sinus pain and Denies sore throat Cardiovascular: Cardiovascular: Denies chest pain, Denies irregular heart rhythm and Denies dyspnea Respiratory: Respiratory: Denies dyspnea Gastrointestinal: Gastrointestinal: Denies abdominal pain, Denies melena, Denies hematochezia, Denies diarrhea, Denies nausea and Denies vomiting Musculoskeletal: Musculoskeletal: Denies back pain, Denies myalgias and Denies arthralgias Integumentary/Breasts: Skin/Breast: Denies pruritus and Denies rash Neurologic: Denies headache(s), Denies loss of vision and Denies weakness Psychiatric: Psychiatric: Reports no additional psychiatric complaints PMFSH Past Medical History Medical History Chest pain BMI 34.0-34.9,adult Yeast infection Dysuria Infected dental caries Tobacco abuse Depression Generalized anxiety disorder with panic attacks Encounter to establish care BMI 36.0-36.9,adult Migraine with aura Headache GERD (gastroesophageal reflux disease) Arthritis Anxiety Acute appendicitis with localized peritonitis Encounter for screening examination for sexually transmitted disease Surgical History Surgical History History of tonsillectomy (~2012) H/O tubal ligation 2020 Delivery by section x 2 Family History Family History Sibling Diabetes mellitus Family history of cystic fibrosis Depression Grandparent Cancer Diabetes mellitus Hypertension Depression Anxiety Grandparent Cancer Diabetes mellitus Social History Social History Smoking packs per day: 0.5 Smoking cigarettes per day: 10.0 Smoking status: Current every day smoker Tobacco type: cigarettes Alcohol intake: never Substance use: current Substance use type: marijuana Other substance usage details: Vapes THC but no other substances for a year and a half Lack of Transportation: No Lack of Food: Never True Current Housing: I Have Housing Concerned About Future Housing: No Difficulty Paying Gas/Electric Bills: No Difficulty Paying for Meds: No Currently Unemployed: No Education: High School Diploma/GED Difficulty w/ Childcare or Family Care: No Living arrangements: with roommate(s) Occupation/Education: occupation 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 There is no relevant family history pertinent to the presenting complaint. Exam Const: General: cooperative, healthy appearing, comfortable, no acute distress and well nourished Nutritional Appearance: well nourished Orientation/consciousness: patient oriented x3 Limitations: no limitations HENMT: Head: normal to inspection, normocephalic and atraumatic Ears: hearing grossly normal bilaterally, external ears normal, TM's normal bilaterally and mastoids normal bilaterally Face/Nose/Sinus: Normal external nose present, normal facial exam and face symmetric Face and sinus: normal facial exam and face symmetric Mouth: Yes Normal oral and palatal mucosa present, Yes lip normal, Yes tongue normal, Yes Normal salivary glands and ducts present and Yes moist mucous membranes Teeth and gingiva: abnormal tooth and associated gingiva upper left canine tender and with associated gingival edema and poor dentition Teeth image:  1. all extracted. Healing well with no open area or swelling. NO pain on palpation 2. Tenderness and associated gingival edema Eyes: General: appearance normal, both eyes and all related structures Alignment and Position: alignment normal and position normal Periorbital: periorbital findings normal Eyelids: eyelids normal Pupils: Equal, round and reactive pupils present EOM: EOMs intact bilaterally Neck: Neck: normal visual inspection, full ROM, no lymphadenopathy and supple Chest: Chest palpation & inspection: normal inspection of the chest Resp: Effort & Inspection: normal respiratory effort and able to speak in complete sentences Auscultation: clear to auscultation bilaterally Cardio: Rate: regular rate Rhythm: regular rhythm Heart sounds: S1 normal heart sound present and S2 normal heart sound present GI: Inspection: normal to inspection Skin: General skin exam: normal color and no rashes or lesions noted Neuro: General: patient oriented x3 and moves all extremities Cranial nerves: Yes Equal, round and reactive pupils present Speech: normal speech Gait exam (Neuro): Normal gait present Extrem: General: normal to inspection, full ROM and no edema Psych: Appearance: grossly normal and well kempt Mental Status: mental status grossly normal Speech and movement: Normal speech and movement present Affect: normal affect Attitude: cooperative Thought process: Normal thought process present Course Course Emergency Course: Patient is aware of diagnosis, understands and agrees to treatment plan. Anticipatory guidance given. Patient agrees to follow-up as directed and is aware of reasons to seek care at the emergency department. Portions of this record may have been created with voice recognition software Level of Care: Express Care Visit Vital Signs Vital signs: Reviewed MDM - Dental/Oral MDM Narrative Medical decision making narrative: Patients pain and complaint coupled with physical findings are consistant with dentalgia. There are no focal signs of space occupying lesions that are compromising to the airway; no dysphagia, odynophagia, dysphonia, or dyspnea. No uvular deviation or soft palate edema. Patient is non-toxic appearing. The floor of the mouth is soft with no signs of Chris's Angina; no induration below mandible, no neck pain. Patient is without trismus or drooling and able to swallow secretions. Patient is felt appropriate for discharge home with dental follow up. Differential Diagnosis Differential diagnosis: Likely gingival abscess, dental caries, toothache, dental abscess and fracture of tooth Medical Records Attestation: I reviewed the patient's medical records. Discharge Plan Discharge Clinical Impression: Dental abscess Patient Disposition: Home, Self-Care Condition: Stable Instructions: Dental Abscess (ED) Additional Instructions: Take antibiotic until it's gone. Brushing teeth at least twice daily with gentle flossing. Avoid temperature extremes---when you eat. Salt gargle to rinse your mouth after every meal You may apply ice to the face to reduce pain/swelling. For pain, you may take: Tylenol 650-1000mg by mouth every 4-6 hours. Do not exceed 4000mg in 24 hours. Advil (Ibuprofen) 800 mg by mouth every 8 hours. Do not exceed 2400mg in 24 hours. Also, recommend regular dental check up one-two times a year to prevent tooth decay and other periodontal disease. Follow-up with the dentist as soon as possible--see the list provided DO NOT TAKE FLUCONAZOLE THE SAME TIME FIORICET OR LEXAPRO Patient Language: Mongolian Prescriptions: New amoxicillin-pot clavulanate 875-125 mg tablet 1 tablet PO Q12H 14 Days Qty: 28 0RF ibuprofen 800 mg tablet 800 mg PO TID 14 Days Qty: 42 0RF fluconazole 150 mg tablet 150 mg PO ONCE Qty: 2 0RF Rx Instructions: as a single dose after antibiotics are complete. If symptoms persist, take second dose 3 days later. No Action clindamycin HCl [Cleocin HCl] 300 mg capsule 300 mg PO Q8H 10 Days Qty: 30 0RF ibuprofen 800 mg tablet 800 mg PO TID PRN (Reason: pain) Qty: 15 0RF lidocaine HCl [Lidocaine Viscous] 2 % solution 1 applic mucous membrane TID PRN (Reason: pain) Qty: 100 0RF Rx Instructions: apply with cotton swab to site of pain metoprolol succinate 25 mg tablet extended release 24 hr 25 mg PO DAILY Qty: 90 3RF omeprazole 40 mg capsule,delayed release(DR/EC) 40 mg PO DAILY Qty: 90 3RF bupropion HCl [Wellbutrin SR] 150 mg tablet sustained-release 12 hr 150 mg PO QAM Qty: 90 3RF rizatriptan 5 mg tablet See Rx Instructions PO .COMPLEX Qty: 9 11RF Rx Instructions: take 1 tablet at onset of headache; if no relief, may repeat 1 tablet after at least 2 hrs PO [id number]-bybmasggfekvg-eluo [Fioricet] 50-300-40 mg capsule 1 cap PO TID PRN (Reason: pain) Qty: 20 0RF escitalopram oxalate 20 mg tablet 20 mg PO DAILY Qty: 90 0RF Rx Instructions: call office to make appt. Need appt for further refills Follow-up/Referrals: Estela Rodney NP [Primary Care Provider] - 3 Days Stand Alone Forms: Work/School Release IP Time of Disposition: 09:18
[2024-12-24 08:50] VITALS: BP 118/78; PULSE 77; RESP 18; TEMP 36.2; O2SAT 98
--- OUTSIDE RECORDS SUMMARY | 2024-12-24 09:05 | XMS_ITS | Patient Health Record ---
Author Organization [facility] Address [address] [place] [address] Care Team Providers Care Senior Support Analyst Name Role Phone Fabian Khoury Primary Care Provider [phone] Allergies Allergen (clinical drug ingredient) Drug/Non Drug [...] Problem Status W/U Status Risk Notes Problem [id number] Methamphetamine abuse (F15.10) Active confirmed Problem [id number] Tobacco use disorder (F17.200) Active confirmed Plan Of Treatment No Information Insurance Providers Payer Name Payer Address Payer Phone Subscriber Number Group Number Insured Name Patient Relationship to Insured Coverage Start Date Coverage End Date [facility] Attn Claims Department [address] [place] [address] [id number] Gricelda Abebe Self - patient is the insured 0 Medical (General) History Surgical History Surgery Date(Month/Year) appendix surgery 2015 tonsillectomy 2013 Hospitalization History Reason Date(Month/Year) 2014/2015
== END 2024-12-24 09:19 | disposition home or self-care (01) ==
PROVIDERS: Emergency Provider Nurse Practitioner Family; PCP Nurse Practitioner Family
DX: K04.7 Periapical abscess without sinus (principal); F17.210 Nicotine dependence, cigarettes, uncomplicated; F12.90 Cannabis use, unspecified, uncomplicated; K21.9 Gastro-esophageal reflux disease without esophagitis; M19.90 Unspecified osteoarthritis, unspecified site; F41.1 Generalized anxiety disorder; F41.0 Panic disorder [episodic paroxysmal anxiety]; F32.A Depression, unspecified
CPT/HCPCS: 99213; G0463

== ENCOUNTER 2024-12-25 21:01 | Emergency (ER) | payer OTHER, SELFPAY ==
--- OUTSIDE RECORDS SUMMARY | 2024-12-25 21:02 | XMS_ITS | Patient Health Record ---
Author Organization [facility] Address [address] [place] [address] Care Team Providers Care Spring Coiler Name Role Phone Fabian Khoury Primary Care Provider [phone] Allergies Allergen (clinical drug ingredient) Drug/Non [...] Problem Status W/U Status Risk Notes Problem [id number] Methamphetamine abuse (F15.10) Active confirmed Problem [id number] Tobacco use disorder (F17.200) Active confirmed Plan Of Treatment No Information Insurance Providers Payer Name Payer Address Payer Phone Subscriber Number Group Number Insured Name Patient Relationship to Insured Coverage Start Date Coverage End Date [facility] Attn Claims Department [address] [place] [address] [id number] Gricelda Abebe Self - patient is the insured 0 Medical (General) History Surgical History Surgery Date(Month/Year) appendix surgery 2015 tonsillectomy 2013 Hospitalization History Reason Date(Month/Year) 2014/2015
[2024-12-25 21:05] VITALS: BP 145/74; PULSE 79; RESP 19; TEMP 36.2; O2SAT 100
--- NOTE | 2024-12-25 23:45 | PC.NURSE ---
Family member at nurses' station telling staff to go suck a danie and telling staff how horrible they are and this is a terrible hospital. Also upset that they were in a shared room with a patient they overheard has Covid. Staff attempted to explain CDC guidelines to pt visitor and course of ED treatment, such as awaiting an ERP eval for orders, but visitor then angrily walked towards parking lot. Security requested to assist with situation.
--- NOTE | 2024-12-25 23:51 | PC.NURSE ---
pt observed stomping out of the er into [address] into spouse truck. Truck seen driving away.
--- OUTSIDE RECORDS SUMMARY | 2024-12-26 04:07 | XMS_ITS | Patient Health Record ---
Author Organization [facility] Address [address] [place] [address] Care Team Providers Care Rough Rib Grader Name Role Phone Fabian Khoury Primary Care [...] Problem Status W/U Status Risk Notes Problem [id number] Methamphetamine abuse (F15.10) Active confirmed Problem [id number] Tobacco use disorder (F17.200) Active confirmed Plan Of Treatment No Information Insurance Providers Payer Name Payer Address Payer Phone Subscriber Number Group Number Insured Name Patient Relationship to Insured Coverage Start Date Coverage End Date [facility] Attn Claims Department [address] [place] [address] [id number] Gricelda Abebe Self - patient is the insured 0 Medical (General) History Surgical History Surgery Date(Month/Year) appendix surgery 2015 tonsillectomy 2013 Hospitalization History Reason Date(Month/Year) 2014/2015
== END 2024-12-25 23:51 | disposition left against medical advice (07) ==
LOC: ANHED 12-26 04:06
PROVIDERS: PCP Nurse Practitioner Family
DX: R11.10 Vomiting, unspecified (principal)
CPT/HCPCS: 99199

== ENCOUNTER 2025-06-20 09:00 | Emergency (ER) | payer BC, SELFPAY ==
--- OUTSIDE RECORDS SUMMARY | 2025-06-20 09:06 | XMS_ITS | Patient Health Record ---
Author Organization [facility] Address [address] [place] [address] Care Team Providers Care Turf Keeper Name Role Phone Fabian Khoury Primary Care Provider [phone] Allergies Allergen (clinical drug ingredient) Drug/Non [...] 1 MG 1 tablet Orally Once a day; Duration: 30 day(s) Active Multivitamin Adult - as directed Orally Active Clindamycin HCl 300 MG 2 capsules Orally every 8 hrs; Duration: 10 day(s) Active Thiamine HCl 100 MG 1 tablet Orally Once a day; Duration: 30 day(s) Active LORazepam 1 MG 1 tablet at bedtime as needed Orally Once a day Active Social History Sex Assigned At : Social History Observation Description Sex Assigned At Female Problems Problem Type SNOMED Code ICD Code Onset Dates Problem Status W/U Status Risk Notes Problem Methamphetamine abuse (608180939) Methamphetamine abuse (F15.10) Active confirmed Problem Tobacco use (862507304) Tobacco use disorder (F17.200) Active confirmed Plan Of Treatment No Information Insurance Providers Payer Name Payer Address Payer Phone Subscriber Number Group Number Insured Name Patient Relationship to Insured Coverage Start Date Coverage End Date [facility] Attn Claims Department [address] [place] [address] [phone]06 [id number] Gricelda Abebe Self - patient is the insured 0 Medical (General) History Surgical History Surgery Date(Month/Year) appendix surgery 2014 tonsillectomy 2013 Hospitalization History Reason Date(Month/Year)
--- NOTE | 2025-06-20 09:12 | ED.FEMALEGU ---
HPI - Female Genitourinary General Chief complaint: Urogenital-Female Stated complaint: UTI symptome Time Seen by Provider: 06/20/25 09:22 Source: patient, RN notes reviewed and old records reviewed Mode of arrival: ambulatory Limitations: no limitations History of Present Illness HPI Narrative: 29 year old female who presents to [facility] care with complaints of urinary tract symptoms which started Monday evening. Patient reports she has burning and pain with urination, has noted some pinkish drainage on tissue when wiping and does have some flank discomfort bilaterally. Patient denies any fevers, chills, sweats, or reports no nausea vomiting or episodes. Patient reports she [place] returned from [place]. Patient reports she has been drinking cranberry juice and has increased her water consumption. MD elicited complaint: UTI Pertinent past history: other (previous UTI) Onset (ago): day(s) (2 ) Severity: moderate Quality of pain: burning and aching Vaginal discharge: none Treatment prior to arrival: other (cranberry juice and water) Related Data Allergies Allergy/AdvReac Type Severity Reaction Status Date / Time latex Allergy Hives Verified 06/20/25 09:08 metronidazole (From Flagyl) Allergy Hives Verified 06/20/25 09:08 Penicillins Allergy Hives Verified 06/20/25 09:08 Review of Systems Review of Systems: CONSTITUTIONAL: Denies fever, chills, or sweats. CARDIOVASCULAR: Denies chest pain, palpitations, or edema. RESPIRATORY: Denies cough or dyspnea. GASTROINTESTINAL: Denies abdominal pain, nausea, vomiting, or diarrhea. GENITOURINARY: Reports dysuria, frequency, urgency. reports bilateral flank pain visible hematuria when wiping. SKIN: Denies rash or itching. MUSCULOSKELETAL: Denies back pain or myalgia. reports CVA tenderness NEUROLOGIC: Denies headache All systems reviewed & are unremarkable except as noted in HPI and below PMFSH Past Medical History Medical History UTI (urinary tract infection) Chest pain BMI 34.0-34.9,adult Yeast infection Dysuria Infected dental caries Tobacco abuse Depression Generalized anxiety disorder with panic attacks Encounter to establish care BMI 36.0-36.9,adult Migraine with aura Headache GERD (gastroesophageal reflux disease) Arthritis Anxiety Acute appendicitis with localized peritonitis Encounter for screening examination for sexually transmitted disease Surgical History Surgical History History of appendectomy History of tonsillectomy (~2012) H/O tubal ligation 2020 Delivery by section x 2 Family History Family History Sibling Diabetes mellitus Family history of cystic fibrosis Depression Grandparent Cancer Diabetes mellitus Hypertension Depression Anxiety Grandparent Cancer Diabetes mellitus Social History Social History Smoking packs per day: 0.5 Smoking cigarettes per day: 10.0 Smoking status: Current every day smoker Tobacco type: cigarettes Alcohol intake: current Alcohol use details: social Substance use: current Substance use type: marijuana Other substance usage details: Vapes THC but no other substances for a year and a half Lack of Transportation: No Lack of Food: Never True Current Housing: I Have Housing Concerned About Future Housing: No Difficulty Paying Gas/Electric Bills: No Difficulty Paying for Meds: No Currently Unemployed: No Education: High School Diploma/GED Difficulty w/ Childcare or Family Care: No Living arrangements: with roommate(s) Occupation/Education: occupation 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 There is no relevant family history pertinent to the presenting complaint Exam Narrative: GENERAL: Well-appearing, well-nourished, and in no acute distress. HEAD: Normocephalic, atraumatic. NECK: Supple. no lymphadenopathy CHEST: Clear to auscultation. No respiratory distress. no cough SAO2 100% on room air HEART: Regular rate and rhythm. No murmur heard. Normal peripheral pulses. ABDOMEN: Soft, nontender, nondistended, normal active bowel sounds. bilateral CVA tenderness, burning and pain with urination, with some blood noted when wiping. EXTREMITIES: Normal range of motion. No edema. SKIN: Warm, dry, no rash. NEURO: No focal deficits. Alert and oriented x3. Course Course Emergency Course: Patient is aware of diagnosis, understands and agrees to treatment plan.? Anticipatory guidance given.? Patient agrees to follow-up as directed and is aware of reasons to seek care at the emergency department. Portions of this record may have been created with voice recognition software Level of Care: Express Care Visit MDM - Female Genitourinary MDM Narrative Medical decision making narrative: Exam findings and UA show no acute concerns or changes; patient is non-toxic appearing and is in no distress.? Patient is appropriate for outpatient treatment and follow-up. Differential Diagnosis Differential diagnosis: Likely urinary tract infection, cystitis and other (dysuria) Medical Records Attestation: I reviewed the patient's medical records. Lab Data Attestation: I reviewed the patient's lab results. Lab results narrative: Urine dip glucose negative, bilirubin negative, ketone negative, specific gravity 1.020, blood 2+, pH 7.5, protein 2+, urobilinogen 0.2 nitrate negative leukocyte sent for culture Critical Care Time Critical Care Time Critical Care Time: No Discharge Plan Discharge Clinical Impression: UTI (urinary tract infection) Qualifiers: Urinary tract infection type: site unspecified Hematuria presence: with hematuria Qualified Code(s): N39.0 - Urinary tract infection, site not specified Patient Disposition: Home Condition: Stable Instructions: Antibiotic Form, Urinary Tract Infection in Women (DC) Additional Instructions: Increase fluids especially cranberry juice and water Avoid caffeine and carbonated beverages Antibiotic as directed Medicine as directed--cautioned it will cause your urine to be bright orange Tylenol/ibuprofen for pain or fever Follow-up with her primary care provider if further problems or concerns Recheck if you have fever over 101, nausea and vomiting. Patient Language: Kiswahili Prescriptions: New nitrofurantoin monohyd/m-cryst [Macrobid] 100 mg capsule 100 mg PO Q12H 7 Days Qty: 14 0RF Rx Instructions: must administer with a meal/food phenazopyridine [Pyridium] 200 mg tablet 200 mg PO TID Qty: 6 0RF No Action metoprolol succinate 25 mg tablet extended release 24 hr 25 mg PO DAILY Qty: 90 3RF omeprazole 40 mg capsule,delayed release(DR/EC) 40 mg PO DAILY Qty: 90 3RF bupropion HCl [Wellbutrin SR] 150 mg tablet sustained-release 12 hr 150 mg PO QAM Qty: 90 3RF gsuvgcnrag-zugnfqtimsrak-nwol [Fioricet] 50-300-40 mg capsule 1 cap PO TID PRN (Reason: pain) Qty: 20 0RF escitalopram oxalate 20 mg tablet 20 mg PO DAILY Qty: 90 0RF Rx Instructions: call office to make appt. Need appt for further refills Follow-up/Referrals: UNKNOWN,DOCTOR [Primary Care Provider] Time of Disposition: 09:36 Quality Bernadette Coma Scale Eyes: Open Verbal: Oriented and Alert Motor: Follows Commands [place] Coma Total Score: 15
[2025-06-20 09:13] VITALS: BP 99/64; PULSE 82; RESP 18; TEMP 36.1; O2SAT 100
[2025-06-20 09:22] LABS: EDUAAPPEAR Cloudy; EDUABILI Negative (Negative); EDUABLOOD 2+ (Negative); EDUACOLOR1 Yellow; EDUAGLUCOSE Negative (Negative); EDUAKETONE Negative (Negative); EDUALEUKO 1+ (Negative); EDUANITRATE Negative (Negative); EDUAPH 7.5; EDUAPROTEIN 2+ (Negative); EDUASPGRAVITY 1.020; EDUAUROBILI 0.2
== END 2025-06-20 09:40 | disposition home or self-care (01) ==
PROVIDERS: Emergency Provider Registered Nurse
DX: N39.0 Urinary tract infection, site not specified (principal); F17.210 Nicotine dependence, cigarettes, uncomplicated; F12.90 Cannabis use, unspecified, uncomplicated; K21.9 Gastro-esophageal reflux disease without esophagitis; M19.90 Unspecified osteoarthritis, unspecified site; F32.A Depression, unspecified; F41.1 Generalized anxiety disorder
CPT/HCPCS: 81003; 87086; 99213; G0463

== ENCOUNTER 2025-09-29 08:23 | Emergency (ER) | payer BC, SELFPAY ==
[2025-09-29 08:32] VITALS: BP 111/54; PULSE 74; RESP 24; TEMP 36.2; O2SAT 97
--- NOTE | 2025-09-29 08:33 | ED.DENTAL ---
HPI - Dental/Oral General Chief complaint: Dental/Oral Stated complaint: dental/pain Mode of arrival: ambulatory Limitations: no limitations History of Present Illness MD Complaint: tooth pain Related Data Allergies Allergy/AdvReac Type Severity Reaction Status Date / Time latex Allergy Hives Verified 06/20/25 09:08 metronidazole (From Flagyl) Allergy Hives Verified 06/20/25 09:08 Penicillins Allergy Hives Verified 06/20/25 09:08 Review of Systems Review of Systems: CONSTITUTIONAL: Denies malaise, chills, sweats, or fever. EYES: Denies visual changes ENT: Denies rhinorrhea, congestion, sinus pain, otalgia or sore throat. Reports dental pain CARDIOVASCULAR: Denies chest pain, palpitations RESPIRATORY: Denies cough or dyspnea. SKIN: Denies rash or itching. MUSCULOSKELETAL: Denies myalgia. NEUROLOGIC: Denies numbness, weakness, or headache. All systems reviewed & are unremarkable except as noted in HPI and below PMFSH Past Medical History Medical History UTI (urinary tract infection) Chest pain BMI 34.0-34.9,adult Yeast infection Dysuria Infected dental caries Tobacco abuse Depression Generalized anxiety disorder with panic attacks Encounter to establish care BMI 36.0-36.9,adult Migraine with aura Headache GERD (gastroesophageal reflux disease) Arthritis Anxiety Acute appendicitis with localized peritonitis Encounter for screening examination for sexually transmitted disease Surgical History Surgical History History of appendectomy History of tonsillectomy (~2012) H/O tubal ligation 2020 Delivery by section x 2 Family History Family History Sibling Diabetes mellitus Family history of cystic fibrosis Depression Grandparent Cancer Diabetes mellitus Hypertension Depression Anxiety Grandparent Cancer Diabetes mellitus Social History Social History Smoking packs per day: 0.5 Smoking cigarettes per day: 10.0 Smoking status: Current every day smoker Tobacco type: cigarettes Alcohol intake: current Alcohol use details: social Substance use: current Substance use type: marijuana Other substance usage details: Vapes THC but no other substances for a year and a half Lack of Transportation: No Lack of Food: Never True Current Housing: I Have Housing Concerned About Future Housing: No Difficulty Paying Gas/Electric Bills: No Difficulty Paying for Meds: No Currently Unemployed: No Education: High School Diploma/GED Difficulty w/ Childcare or Family Care: No Living arrangements: with roommate(s) Occupation/Education: occupation 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 There is no relevant family history pertinent to the presenting complaint Exam Narrative: GENERAL: Well-appearing, well-nourished, and in no acute distress. HEAD: Normocephalic, atraumatic. EYES: PERRLA, sclera clear ENT: Nares clear, turbinates pink, no rhinorrhea or epistaxis. Mucous membranes moist. TM pearly curtis with sharp light reflex bilaterally; no tragal tenderness. Oropharynx without erythema or lesions. Tonsils not enlarged and without exudate. Missing teeth, broken teeth, caries NECK: Supple. No lymphadenopathy. CHEST: No respiratory distress. Speaks in full sentences. HEART: Regular rate and rhythm. SKIN: Warm, dry, no visible rash. NEURO: Alert and oriented x3. PSYCH: Normal mood and affect Course Course Emergency Course: Patient is aware of diagnosis, understands and agrees to treatment plan. Anticipatory guidance given. Patient agrees to follow-up as directed and is aware of reasons to seek care at the emergency department. Portions of this record may have been created with voice recognition software Level of Care: Express Care Visit MDM Differential Diagnosis Differential Diagnosis: I evaluated this patient in the express care. History is obtained from patient who is an independent historian and physical exam was performed.? Available medical records were reviewed. ? Exam findings and relevant testing show no acute concerns or changes; patient is non-toxic appearing and is in no distress. ? Patients pain and complaint coupled with physical findings are consistent with dentalgia. There are no focal signs of space occupying lesions that are compromising to the airway; no dysphagia, odynophagia, dysphonia, or dyspnea. No uvular deviation or soft palate edema. Patient is non-toxic appearing. The floor of the mouth is soft with no signs of Chris's Angina; no induration below mandible, no neck pain. Patient is without trismus or drooling and able to swallow secretions. Patient is felt appropriate for discharge home with dental follow up. Differential diagnosis and treatment plan were discussed with the patient. Patient agrees with discussion and after shared medical decision making agrees with plan of care. All questions were answered to the patient's satisfaction. Patient is appropriate for outpatient treatment and follow-up. Discharge Plan Discharge Patient Language: Macedonian Prescriptions: No Action nitrofurantoin monohyd/m-cryst [Macrobid] 100 mg capsule 100 mg PO Q12H 7 Days Qty: 14 0RF Rx Instructions: must administer with a meal/food phenazopyridine [Pyridium] 200 mg tablet 200 mg PO TID Qty: 6 0RF Follow-up/Referrals: Estela Rodney APRN [Primary Care Provider, Family Practice] Stand Alone Forms: Work/School Release IP
--- NOTE | 2025-09-29 08:47 | ED.URI ---
HPI - URI/Sore Throat General Chief Complaint: Dental/Oral Stated Complaint: dental/pain Time Seen by Provider: 09/29/25 08:43 Source: patient and RN notes reviewed Mode of arrival: ambulatory Limitations: no limitations History of Present Illness HPI Narrative: 29-year-old female presents with concern for left cheek pain. She reports she thinks is dental pain, however she had all of her teeth pulled in that area in the spring. She denies any oral injury, oral swelling. She reports the pain starts in her left cheek and radiates toward her ear. She took Tylenol, otherwise is not take any medications for his symptoms. She reports last week she had a sinus congestion, drainage and pain. MD elicited complaint: sinus pain Related Data Home Medications ?Medication ?Instructions ?Recorded ?Confirmed ?Last Taken ?Type chlorhexidine gluconate 0.12 % 15 ml buccal DAILY 09/29/25 09/29/25 Unknown History mouthwash Allergies Allergy/AdvReac Type Severity Reaction Status Date / Time latex Allergy Hives Verified 09/29/25 08:35 metronidazole (From Flagyl) Allergy Hives Verified 09/29/25 08:35 Penicillins Allergy Hives Verified 09/29/25 08:35 Review of Systems Review of Systems: CONSTITUTIONAL: Denies malaise, chills, sweats, or fever. EYES: Denies visual changes, redness, or discharge. ENT: Reports rhinorrhea, congestion, left sinus pain, left otalgia CARDIOVASCULAR: Denies chest pain, palpitations, or edema. RESPIRATORY: Denies cough. Denies dyspnea. GASTROINTESTINAL: Denies abdominal pain, nausea, vomiting, diarrhea SKIN: Denies rash or itching. MUSCULOSKELETAL: Denies myalgia. NEUROLOGIC: Denies headache. All systems reviewed & are unremarkable except as noted in HPI and below PMFSH Past Medical History Medical History UTI (urinary tract infection) Chest pain BMI 34.0-34.9,adult Yeast infection Dysuria Infected dental caries Tobacco abuse Depression Generalized anxiety disorder with panic attacks Encounter to establish care BMI 36.0-36.9,adult Migraine with aura Headache GERD (gastroesophageal reflux disease) Arthritis Anxiety Acute appendicitis with localized peritonitis Encounter for screening examination for sexually transmitted disease Surgical History Surgical History History of appendectomy History of tonsillectomy (~2012) H/O tubal ligation 2020 Delivery by section x 2 Family History Family History Sibling Diabetes mellitus Family history of cystic fibrosis Depression Grandparent Cancer Diabetes mellitus Hypertension Depression Anxiety Grandparent Cancer Diabetes mellitus Social History Social History Smoking packs per day: 0.5 Smoking cigarettes per day: 10.0 Smoking status: Current every day smoker Tobacco type: cigarettes Alcohol intake: current Alcohol use details: social Substance use: current Substance use type: marijuana Other substance usage details: Vapes THC but no other substances for a year and a half Lack of Transportation: No Lack of Food: Never True Current Housing: I Have Housing Concerned About Future Housing: No Difficulty Paying Gas/Electric Bills: No Difficulty Paying for Meds: No Currently Unemployed: No Education: High School Diploma/GED Difficulty w/ Childcare or Family Care: No Living arrangements: with roommate(s) Occupation/Education: occupation 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 There is no relevant family history pertinent to the presenting complaint Exam Narrative: GENERAL: Well-appearing, well-nourished, and in no acute distress. HEAD: Normocephalic EYES: PERRLA, conjunctivae clear ENT: Nares clear, left sinus tenderness. Mucous membranes moist. TM pearly curtis with dull light reflex bilaterally; no tragal tenderness. Oropharynx not erythematous without lesions. Tonsils not enlarged and without exudate, no drooling, no hoarseness, no trismus, uvula midline. Caries noted to the front teeth, no teeth present on the left lateral side NECK: Supple. No lymphadenopathy CHEST: Clear to auscultation, breath sounds equal. No wheezing, rhonchi, rales, or stridor. No respiratory distress, speaks in full sentences. HEART: Regular rate and rhythm. No murmur heard. SKIN: Warm, dry, no rash. NEURO: Alert and oriented x3. PSYCH: Normal mood and affect Course Course Emergency Course: Patient is aware of diagnosis, understands and agrees to treatment plan. Anticipatory guidance given. Patient agrees to follow-up as directed and is aware of reasons to seek care at the emergency department. Portions of this record may have been created with voice recognition software Level of Care: [facility] Visit Vital Signs Vital signs: Vital Signs Temperature 97.1 F L 09/29/25 08:32 Pulse Rate 74 09/29/25 08:32 Respiratory Rate 24 H 09/29/25 08:32 Blood Pressure 111/54 L 09/29/25 08:32 Pulse Oximetry 97 09/29/25 08:32 Oxygen Delivery Room Air 09/29/25 08:32 Temperature 97.1 F L 09/29/25 08:32 Pulse Rate 74 09/29/25 08:32 Respiratory Rate 24 H 09/29/25 08:32 Blood Pressure 111/54 L 09/29/25 08:32 Pulse Oximetry 97 09/29/25 08:32 Oxygen Delivery Room Air 09/29/25 08:32 MDM Differential Diagnosis Differential Diagnosis: I evaluated this patient in the [facility]. History is obtained from patient who is an independent historian and physical exam was performed.? Available medical records were reviewed. ? Exam findings and relevant testing show no acute concerns or changes; patient is non-toxic appearing and is in no distress. ? Differential diagnosis considered: Dental infection, Maldonado virus, strep pharyngitis, allergic rhinitis, upper respiratory tract infection, sinusitis, rhinosinusitis, nasopharyngitis. viral pharyngitis, otitis media, otitis externa, pneumonia, bronchitis, viral cough syndrome, viral syndrome, and influenza. Differential diagnosis and treatment plan were discussed with the patient. Patient agrees with discussion and after shared medical decision making agrees with plan of care. All questions were answered to the patient's satisfaction. Patient is appropriate for outpatient treatment and follow-up. Discharge Plan Discharge Clinical Impression: Sinusitis Patient Disposition: Home Condition: Stable Instructions: Antibiotic Form, Sinusitis (ED) Additional Instructions: Take medication as prescribed Nonprescription pain medications, such as acetaminophen (eg, Tylenol) or ibuprofen (eg, Motrin, Advil), are recommended for pain. Flushing the nose and sinuses with a saline solution several times per day has been proven to decrease pain associated with congestion and shorten the duration of symptoms. Nasal steroids (such as Flonase, 2 sprays in each nostril daily) can help to reduce swelling inside the nose, usually within two to three days. These drugs have few side effects and relieve symptoms in most people. Oral decongestants (pseudoephedrine and phenylephrine) may be helpful if you have associated symptoms of ear pain or fullness. Medications to thin secretions (such as guaifenesin) may help to clear mucus. Please follow-up with your primary care doctor in the next 1-2 days. If you cannot follow-up with your primary care doctor please go to the ED for any urgent issues. If you have any worsening of symptoms or any other concerns please go to the ED immediately. Patient Language: Amharic Prescriptions: New clindamycin HCl 300 mg capsule 300 mg PO Q8H 7 Days Qty: 21 0RF pseudoephedrine HCl [12 Hour Decongestant] 120 mg tablet extended release 120 mg PO Q12H PRN (Reason: nasal congestion) Qty: 12 0RF No Action chlorhexidine gluconate 0.12 % mouthwash 15 ml buccal DAILY Follow-up/Referrals: Estela Rodney APRN [Primary Care Provider, Family Practice] Time of Disposition: 08:52
== END 2025-09-29 08:55 | disposition home or self-care (01) ==
PROVIDERS: Emergency Provider Nurse Practitioner; PCP Nurse Practitioner Family
DX: J32.9 Chronic sinusitis, unspecified (principal); F17.210 Nicotine dependence, cigarettes, uncomplicated; F12.90 Cannabis use, unspecified, uncomplicated; K21.9 Gastro-esophageal reflux disease without esophagitis; M19.90 Unspecified osteoarthritis, unspecified site
CPT/HCPCS: 99213; G0463